=== PATIENT | female | born 2000 | race Caucasian/White ===

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

== ENCOUNTER 2021-10-24 11:20 | Emergency (ER) | payer MEDICAID ==
[~2021-10-24] VITALS: Ht 157.5 cm; Wt 45.4 kg
[~2021-10-24 11:20] MED LIST changes: +GOOD NEIGHBOR P20 M1 PO
[2021-10-24 11:56] LABS: BASO # 0.01 K/mm3 (0.02-0.10); EOS # 0.02 K/mm3 (0.04-0.40); EOS % 0.3 % (0.1-4.0); HEMATOCRIT 40.6 % (35.0-45.0); HEMOGLOBIN 13.8 g/dL (12.0-15.0); LYMPH# 1.33 K/mm3 (1.20-3.40); MEAN CELL VOLUME 89 fl (78-95); MEAN CORPUSCULAR HEMOGLOBIN 30 pg (26-32); MEAN CORPUSCULAR HGB CONC 34 g/dL (33-37); MEAN PLATELET VOLUME 9.1 fl (7.4-10.4); MONO # 0.32 K/mm3 (0.10-0.60); PLATELET COUNT 302 K/mm3 (130-400); RED BLOOD COUNT 4.55 M/mm3 (4.10-5.30); RED CELL DISTRIBUTION WIDTH 12.4 % (11.5-14.5); WHITE BLOOD COUNT 7.7 K/mm3 (4.8-10.8)
[2021-10-24 12:07] LABS: POTASSIUM 3.6 mmol/L (3.5-5.1); SODIUM 138 mmol/L (136-145)
[2021-10-24 12:08] LABS: ALBUMIN 4.7 g/dL (3.5-5.0); CALCIUM 10.1 mg/dL (8.3-10.5)
[2021-10-24 12:10] LABS: TOTAL PROTEIN 7.3 g/dL (6.4-8.3)
[2021-10-24 12:11] LABS: GLUCOSE 114 mg/dL (65-105); TOTAL BILIRUBIN 0.6 mg/dL (0.2-1.2)
[2021-10-24 12:13] LABS: D-DIMER 0.21 mg/L FEU (0.15-0.50)
[2021-10-24 12:15] LABS: AST-SGOT 15 U/L (5-34)
[2021-10-24 12:18] LABS: ALT/SGPT 11 U/L (0-55)
[2021-10-24 12:32] LABS: CARBON DIOXIDE 17 mmol/L (22-29); TROPONIN-I < 0.030 ng/mL (<0.030)
[2021-10-24 13:08] LABS: URINE APPEARANCE CLOUDY; URINE BILIRUBIN NEGATIVE (NEGATIVE); URINE BLOOD NEGATIVE (NEGATIVE); URINE COLOR YELLOW; URINE GLUCOSE NEGATIVE (NEGATIVE); URINE KETONE 3+ (NEGATIVE); URINE LEUKOCYTE ESTERASE NEGATIVE (NEGATIVE); URINE NITRATE NEGATIVE (NEGATIVE); URINE PROTEIN(semi-quant) TRACE (NEGATIVE); URINE UROBILINOGEN NORMAL (NORMAL)
[2021-10-24] MEDS ORDERED: ONDANSETRON HYDR4 MG PO (14:49)
[2021-10-24 15:17] VITALS: BP 108/77
== END 2021-10-24 15:42 | disposition home or self-care (01) ==
LOC: ED 11:20
PROVIDERS: Physician Assistant
DX: R11.2 Nausea with vomiting, unspecified (principal); R07.89 Other chest pain; Z20.822 Contact with and (suspected) exposure to COVID-19; Z28.310 Unvaccinated for COVID-19
CPT/HCPCS: J1630; J2405; J2550; J7030

== ENCOUNTER → 2023-01-21 | Outpatient (CLI) | payer MEDICAID ==
[~2023-01-21] MED LIST changes: +BENTYL 20MG20 MG/TAB PO; +ONDANSETRON HYDR4 MG PO
== END ==
LOC: LAB 15:23
DX: Z20.822 Contact with and (suspected) exposure to COVID-19 (principal)